=== PATIENT | female | born 1955 | race Caucasian/White ===

== ENCOUNTER 2017-05-28 19:30 | Emergency (ER) | payer BC ==
[~2017-05-28] VITALS: Ht 170.2 cm; Wt 104.3 kg
[~2017-05-28 19:30] MED LIST: DIOVAN HCT 3201 EACH PO; SIMVASTATIN20 MG PO
[2017-05-28] MEDS ORDERED: CEFTRIAXONE SOD 1 GM VIAL IM ONE (19:45)
[2017-05-28] MEDS ORDERED: ACETAMINOPHEN 325 MG TAB PO ONE (19:45)
[2017-05-28 23:05] VITALS: BP 157/76
== END 2017-05-28 20:15 | disposition home or self-care (01) ==
LOC: FSED 19:30
DX: R30.0 Dysuria (principal); R11.0 Nausea; N30.91 Cystitis, unspecified with hematuria
CPT/HCPCS: 81003; 96372; 99282; J0696

== ENCOUNTER → 2018-06-12 | Day surgery (SDC) | payer BC ==
[2018-06-10 10:17] LABS: BASOPHILS # (AUTO) 0.1 (0.0-0.1); BASOPHILS % 1.5 % (0.0-1.0); EOSINOPHILS # (AUTO) 1.3 (0.0-0.4); EOSINOPHILS % 20.9 % (0.0-6.0); HEMATOCRIT 44.1 % (34.2-44.1); HEMOGLOBIN 14.6 g/dL (12.0-16.0); LYMPHOCYTES # (AUTO) 1.2 (1.0-3.2); LYMPHOCYTES % 19.7 % (18.0-39.1); MEAN CORPUSCULAR HEMOGLOBIN 31.2 pg (28-32); MEAN CORPUSCULAR HGB CONC 33.1 g/dL (31-35); MEAN CORPUSCULAR VOLUME 94.2 fL (81-99); MONOCYTES # (AUTO) 0.6 (0.2-0.8); MONOCYTES % 10.3 % (4.4-11.3); NEUTROPHILS # (AUTO) 2.9 (2.1-6.9); NEUTROPHILS % 47.4 % (38.7-80.0); PLATELET COUNT 149 x10e3/uL (140-360); RED BLOOD COUNT 4.68 x10e6/uL (3.6-5.1); RED CELL DISTRIBUTION WIDTH 13.2 % (11.7-14.4)
[~2018-06-12] MED LIST changes: +BENICAR HCT 401 EAC1 PO; +FENTANYL CITRATE/PF 100MCG/2 ML INJ ONE; +METFORMIN HCL500 MG PO; +MIDAZOLAM HCL 2 MG/2 ML VIAL ONE; +ONDANSETRON HCL INJ 2MG/ML 2ML 2 MG/ML VIAL ONE; +PROPOFOL IV EMULSION 10 MG/ML 50 ML VIAL ONE
--- NOTE | 2018-06-13 00:42 | Operative Report ---
DATE OF PROCEDURE: 06/12/2018 SURGEON: Tunde Jacobs MD PROCEDURE: Colonoscopy and polypectomy. INDICATIONS FOR COLONOSCOPY: Surveillance colonoscopy, personal history of colon polyps. MEDICATIONS: The patient was done under MAC, please see anesthesiologist's note. PROCEDURE IN DETAIL: With the patient in the left lateral decubitus position, a flexible fiberoptic Olympus colonoscope was inserted into the rectum with ease and advanced all the way to the cecum. It was then withdrawn slowly. Mucosa overlying the cecum appeared to be within normal limits. Diverticular disease was noted to be scattered throughout the colon. Two polyps were hot biopsied from the ascending colon with 1 polypectomy site hemoclipped. One polyp was hot biopsied from the transverse colon, 4 polyps were hot biopsied from the sigmoid colon, and 6 polyps were hot biopsied from the rectum. The scope was then retroflexed into the distal rectum and small internal hemorrhoids were noted, none of which was actively bleeding. The scope was then straightened out, it was subsequently withdrawn. The patient tolerated the procedure well. IMPRESSION: 1. Pandiverticulosis. 2. Ascending colon polyps x2, one polypectomy site hemoclipped. 3. Transverse colon polyp, hot biopsied x1. 4. Sigmoid colon polyps x4, hot biopsied. 5. Rectal polyps x6, hot biopsied. 6. Internal hemorrhoids, none actively bleeding. PLAN: Followup histology. Initiate high-fiber, low-fat diet. Initiate high-fiber supplement. The patient might benefit from a followup colonoscopy in 3 years. Tunde Jacobs MD [facility] /[id number] cc: Romel Arias DO
--- OUTSIDE RECORDS SUMMARY | 2018-06-14 12:03 | XMS REPORT | Encounter Summary ---
Author Organization Unknown Address [address] [place] [address] Phone [phone] Care Team Providers Care Assessor Name Role Phone Romel Arias 3 [phone] Reason for Visit Medical Complaint Instructions 1. Acute cystitis urinalysis, dipstick urinary tract infection in women: care instructions Macrobid 100 mg capsule culture, urine 2. Biliuria 3. Urobilinogenuria 4. Glycosuria 5. Hernia of anterior abdominal wall hernia: care instructions 6. Increased frequency of urination 7. Abdominal pain abdominal pain: care instructions 8. Body mass index 30+ - obesity Discussion Note Take your antibiotics as directed. Do not stop taking them just because you feel better. You need to take the full course of antibiotics. Drink extra water and other fluids for the next day or two. This may help wash out the bacteria that are causing the infection. (If you have kidney, heart, or liver disease and have to limit fluids, talk with your doctor before you increase your fluid intake.) Avoid drinks that are carbonated or have caffeine. They can irritate the bladder. Urinate often. Try to empty your bladder each time. To relieve pain, take a hot bath or lay a heating pad set on low over your lower belly or genital area. Never go to sleep with a heating pad in place. will call with culture results and F/U with PCP Plan of Care Reminders Provider Appointments None recorded. Lab Urinalysis, Dipstick 12/27/2017 [facility] Culture, Urine 12/27/2017 [facility] Referral None recorded. Procedures None recorded. Surgeries None recorded. Imaging None recorded. Medications Name Start Date lorazepam 1 mg tablet Macrobid 100 mg capsule Take 1 capsule every 12 hours by oral route as directed for 7 days. metformin 500 mg tablet olmesartan 40 mg-hydrochlorothiazide 25 mg tablet OneTouch Delica Lancets 33 gauge OneTouch Ultra Blue Test Strip OneTouch Ultra2 kit simvastatin 20 mg tablet Medications Administered None recorded. Vitals Height Weight BMI Blood Pressure 5 ft 7 in 220 lbs 34.5 kg/m2 100/64 mm[Hg] Lab Results None recorded. Allergies Code Code System Name Reaction Severity Status Onset NKDA Problems Name Status Onset Date Source Body Mass Index 30+ - Obesity Active 06/12/2017 Hyperlipidemia Active Anxiety Active Hypertensive Disorder Active Procedures None recorded. Vaccine List Vaccine Type influenza, seasonal, injectable 02/27/2011 Social History Smoking Status Never Smoker Past Encounters 12/27/2017 Acute Cystitis; Biliuria; Urobilinogenuria; Glycosuria; Hernia of Anterior Abdominal Wall; Increased Frequency of Urination; Abdominal Pain; Body Mass Index 30+ - Obesity Kendall Carcamo PA-C: [address] [place] [address], Ph. History of Present Illness [id number] Reported By: Patient HPI: Location: abdomen. Quality: pain, pressure. Severity: same. Duration: started 2 days ago, constant. Onset/Timing: sudden. Context: no known exposure to STD, no prior history of STDs, sexually active, history of urine cultures/antibiotic treatment, wipes anterior to posterior, voids after intercourse, history of kidney stones. Modifying factors OTC medication. Associated Symptoms: no fever/chills, no flank pain, no jaundice, no blood in the urine, no pain during urination, no vaginal discharge, no blisters on genitals, no rash on genitals, no muscle aches, no headache, urgency, urinary frequency, abdominal pain Review of Systems Basic Reported By: Patient Constitutional: Constitutional: no fever Eyes: Eyes: no eye complaints Nswn-Kejj-Yhzju-Throat: Ears: no ear complaints. Nose: no nose/sinus problems. Mouth/Throat: no sore throat, no bleeding gums, no mouth complaints, no teeth problems Cardiovascular: Cardiovascular: no chest pain, no shortness of breath, no known heart murmur Respiratory: Respiratory: no cough, no wheezing, no shortness of breath Gastrointestinal: Gastrointestinal: no abdominal pain, no vomiting / diarrhea Genitourinary: Genitourinary: no urinary complaints, no discharge, urinary urgency Musculoskeletal: Musculoskeletal: no muscle aches, no muscle weakness, no arthralgias/joint pain, no back pain Skin: Skin: no abnormal / changing mole, no jaundice, no rashes Neurologic: Neurologic: no loss of consciousness, no weakness, no numbness, no seizures, no dizziness, no headaches Physical Exam Adult Female Complete Reported By: Patient Constitutional: General Appearance: healthy-appearing, well-nourished, well-developed, overweight. Level of Distress: NAD. Ambulation: ambulating normally Psychiatric: Mental Status: active and alert. Orientation: to time, to place, to person Lungs: Respiratory effort: no dyspnea. Percussion: no dullness, flatness, or hyperresonance. Auscultation: breath sounds normal Cardiovascular: Heart Auscultation: RRR, no murmurs Abdomen: Bowel Sounds: normal. Inspection and Palpation: soft, non-distended, no tenderness, no guarding, no rebound tenderness, no masses, no CVA tenderness. Liver: non-tender, no hepatomegaly. Spleen: non-tender, no splenomegaly. Hernia: ventral
--- OUTSIDE RECORDS SUMMARY | 2018-06-14 12:03 | XMS REPORT | Encounter Summary ---
Author Organization Unknown Address [address] [place] [address] Phone [phone] Reason for Visit Medical Complaint Instructions 1. Acute sinusitis sinusitis: care instructions Augmentin 875 mg-125 mg tablet 2. Essential hypertension Discussion Note: None recorded. Plan of Care Patient Instructions continue with nasal steroids. d/c decongestant. follow up pcp and recheck BP Reminders Provider Appointments None recorded. Lab None recorded. Referral None recorded. Procedures None recorded. Surgeries None recorded. Imaging None recorded. Medications Name Start Date Augmentin 875 mg-125 mg tablet Take 1 tablet every 12 hours by oral route with meals for 10 days. lorazepam 1 mg tablet simvastatin 20 mg tablet valsartan 320 mg-hydrochlorothiazide 25 mg tablet Medications Administered None recorded. Vitals Height Weight BMI Blood Pressure 5 ft 7 in 220 lbs 34.5 kg/m2 158/94 mm[Hg] Lab Results None recorded. Allergies Code Code System Name Reaction Severity Status Onset NKDA Problems Name Status Onset Date Source Acute Suppurative Otitis Media without Spontaneous Rupture of Ear Drum Active Encounter Acute Sinusitis Active Encounter Acute Upper Respiratory Infection Active Encounter Urinary Tract Infectious Disease Active Encounter Abnormal Blood Pressure Active Encounter Procedures None recorded. Vaccine List Vaccine Type influenza, seasonal, injectable 02/27/2011 Social History Smoking Status Never Smoker Past Encounters 04/28/2017 Acute Sinusitis; Essential Hypertension Joshua South SUBSTATION MANAGER-C: [address] [place] [address], Ph. History of Present Illness [id number] Reported By: Patient HPI: Location: head/sinuses, chest. Quality: productive cough, nasal/sinus congestion, dry cough. Duration: 14days. Severity: moderate. Onset/Timing: gradual. Context: no foreign travel, non-smoker, sick contact. Associated Symptoms: no shortness of breath, no wheezing, no change in number of pillows needed to sleep at night, no sweats, no significant weight gain, no significant weight loss, no morning cough, no sore throat, no vomiting, no diarrhea, no rash, no nausea, no fever, no muscle aches, no headache, green sputum Review of Systems:ROS as noted in the HPI Review of Systems Basic Reported By: Patient Physical Exam Adult Basic, Adult Female Complete Reported By: Patient Constitutional: General Appearance: obese. Level of Distress: NAD. Ambulation: ambulating normally Psychiatric: Mental Status: active and alert Eyes: Lids and Conjunctivae: non-injected, no discharge Olg-Azrp-Uqtay-Throat: Ears: no lesions on external ear, no outer ear tenderness, EACs clear, TMs clear. Hearing: no hearing loss. Nose: no lesions on external nose, sinus tenderness, nasal discharge--purulent; congestion. Lips, Teeth, and Gums: no mouth or lip ulcers. Oropharynx: moist mucous membranes, no erythema, no exudates, tonsils not enlarged Neck: Neck: trachea midline. Lymph Nodes: no cervical LAD Lungs: Respiratory effort: no dyspnea, no tachypnea, no use of accessory muscles, no intercostal retractions. Auscultation: breath sounds normal Cardiovascular: Heart Auscultation: RRR, no murmurs
--- OUTSIDE RECORDS SUMMARY | 2018-06-14 12:03 | XMS REPORT | Continuity of Care Document ---
Author Author [facility] Interface Address Unknown Phone Unavailable Problems Problem Status Onset Date Classification Date Reported Comments Source Hernia of anterior abdominal wall 12/27/2017 Diagnosis 12/27/2017 [facility] Acute cystitis 12/27/2017 Diagnosis 12/27/2017 [facility] Glycosuria 12/27/2017 Diagnosis 12/27/2017 [facility] Biliuria 12/27/2017 Diagnosis 12/27/2017 [facility] Urobilinogenuria 12/27/2017 Diagnosis 12/27/2017 [facility] Abdominal pain 12/27/2017 Diagnosis 12/27/2017 [facility] Increased frequency of urination 12/27/2017 Diagnosis 12/27/2017 [facility] Body mass index 30+ - obesity 12/27/2017 Diagnosis 12/27/2017 [facility] Hypertensive disorder 06/12/2017 Diagnosis 06/12/2017 [facility] Urinary tract infectious disease 06/12/2017 Diagnosis 06/12/2017 [facility] Body Mass Index 30+ - Obesity 06/12/2017 Problem 12/27/2017 [facility] Acute sinusitis 04/28/2017 Diagnosis 04/28/2017 [facility] Essential hypertension 04/28/2017 Diagnosis 04/28/2017 [facility] Acute Suppurative Otitis Media without Spontaneous Rupture of Ear Drum Problem 04/28/2017 [facility] Acute Sinusitis Problem 04/28/2017 [facility] Acute Upper Respiratory Infection Problem 04/28/2017 [facility] Urinary Tract Infectious Disease Problem 06/12/2017 [facility] Abnormal Blood Pressure Problem 04/28/2017 [facility] Hyperlipidemia Problem 12/27/2017 [facility] Anxiety Problem 12/27/2017 [facility] Hypertensive Disorder Problem 12/27/2017 [facility] Medications Medication Details Route Status Patient Instructions Ordering Provider Order Date Source Amoxicillin 875 MG / Clavulanate 125 MG Oral Tablet [Augmentin] Augmentin 875 mg-125 mg tablet Take 1 tablet every 12 hours by oral route with meals for 10 days. Active [facility] Lorazepam 1 MG Oral Tablet lorazepam 1 mg tablet Active [facility] Simvastatin 20 MG Oral Tablet simvastatin 20 mg tablet Active [facility] Hydrochlorothiazide 25 MG / valsartan 320 MG Oral Tablet valsartan 320 mg-hydrochlorothiazide 25 mg tablet Active [facility] NITROFURANTOIN, MACROCRYSTALS 25 MG / Nitrofurantoin, Monohydrate 75 MG Oral Capsule [Macrobid] Macrobid 100 mg capsule Take 1 capsule every 12 hours by oral route as directed for 7 days. Active [facility] Metformin hydrochloride 500 MG Oral Tablet metformin 500 mg tablet Active [facility] Hydrochlorothiazide 25 MG / Olmesartan medoxomil 40 MG Oral Tablet olmesartan 40 mg-hydrochlorothiazide 25 mg tablet Active [facility] OneTouch Delica Lancets 33 gauge OneTouch Delica Lancets 33 gauge Active [facility] OneTouch Ultra Blue Test Strip OneTouch Ultra Blue Test Strip Active [facility] OneTouch Ultra2 kit OneTouch Ultra2 kit Active [facility] Phenazopyridine hydrochloride 200 MG Oral Tablet phenazopyridine 200 mg tablet Take 1 tablet 3 times a day by oral route as needed for 2 days. Active [facility] Allergies, Adverse Reactions, Alerts Substance Category Reaction Severity Reaction type Status Date Reported Comments Source Immunizations Immunization Date Given Site Status Last Updated Comments Source influenza, seasonal, injectable 02/27/2011 completed [facility] Results Order Name Results Value Reference Range Date Interpretation Comments Source Urinalysis macro (dipstick) panel - Urine COLOR : Yellow 06/12/2017 [facility] Urinalysis macro (dipstick) panel - Urine CLARITY : Clear 06/12/2017 [facility] Urinalysis macro (dipstick) panel - Urine LEUKOCYTES : Large 06/12/2017 [facility] Urinalysis macro (dipstick) panel - Urine NITRITES : Negative 06/12/2017 [facility] Urinalysis macro (dipstick) panel - Urine UROBILINOGEN : Normal 06/12/2017 [facility] Urinalysis macro (dipstick) panel - Urine PROTEIN : Trace 06/12/2017 [facility] Urinalysis macro (dipstick) panel - Urine pH : 5.0 06/12/2017 [facility] Urinalysis macro (dipstick) panel - Urine BLOOD : Small 06/12/2017 [facility] Urinalysis macro (dipstick) panel - Urine SPECIFIC GRAVITY : 1.000 06/12/2017 [facility] Urinalysis macro (dipstick) panel - Urine KETONES : Negative 06/12/2017 [facility] Urinalysis macro (dipstick) panel - Urine BILIRUBIN : Negative 06/12/2017 [facility] Urinalysis macro (dipstick) panel - Urine GLUCOSE Negative 06/12/2017 [facility] Vital Signs Vital Sign Value Date Comments Source Diastolic (mm Hg) 64 12/27/2017 [facility] Height 67 12/27/2017 [facility] Systolic (mm Hg) 100 12/27/2017 [facility] Weight 220 12/27/2017 [facility] Diastolic (mm Hg) 80 06/12/2017 [facility] Height 67 06/12/2017 [facility] Systolic (mm Hg) 120 06/12/2017 [facility] Weight 230 06/12/2017 [facility] Diastolic (mm Hg) 94 04/28/2017 [facility] Height 67 04/28/2017 [facility] Systolic (mm Hg) 158 04/28/2017 [facility] Weight 220 04/28/2017 [facility] Encounters Location Location Details Encounter Type Encounter Number Reason For Visit Attending Provider ADM Date DC Date Status Source [place] [facility] - [id number] SUMAN Colbert-C: [address] [place] [address], Ph. [id number] Joshua South 04/28/2017 [facility] [place] - [facility] - [id number] Collier-C: [address] [place] [address], Ph. [id number] Marietta Huang 06/12/2017 [facility] [place] - [facility] - [id number] Kendall Carcamo PA-C: [address] [place] [address], Ph. [id number] Kendall Carcamo 12/27/2017 [facility] Procedures Procedure Code Date Perfomer Comments Source
--- OUTSIDE RECORDS SUMMARY | 2018-06-14 12:03 | XMS REPORT | Encounter Summary ---
Author Organization Unknown Address [address] [place] [address] Phone [phone] Care Team Providers Care Gun Perforator Name Role Phone Romel Arias 3 [phone] Reason for Visit Medical Complaint Instructions 1. Urinary tract infectious disease urinary tract infection in women: care instructions phenazopyridine 200 mg tablet Macrobid 100 mg capsule urinalysis, dipstick culture, urine 2. Hyperlipidemia high cholesterol: care instructions 3. Hypertensive disorder elevated blood pressure: care instructions 4. Body mass index 30+ - obesity Discussion Note Pt is in NAD; Verbalizes understanding of all instructions with no questions at this time. Plan of Care Patient Instructions Recommend proper hydration and frequent urination. Avoid douching, Recommend urinating after sexual intercourse. Recommend wipe front to back after urinating. Avoid using tubs. Take medications as prescribed. Follow up with your PCP or urologist within 2-3 days if symptoms worsen as discussed. Recommend monitor BP at home and document, bring BP log to PCP for review. Recommend follow a low sodium/fat/ carb diet and exercise 30-45 mins/d 3-4 days a week. Reminders Provider Appointments None recorded. Lab Urinalysis, Dipstick 06/12/2017 [facility] Culture, Urine 06/12/2017 [facility] Referral None recorded. Procedures None recorded. Surgeries None recorded. Imaging None recorded. Medications Name Start Date lorazepam 1 mg tablet Macrobid 100 mg capsule Take 1 capsule every 12 hours by oral route as directed for 7 days. phenazopyridine 200 mg tablet Take 1 tablet 3 times a day by oral route as needed for 2 days. simvastatin 20 mg tablet valsartan 320 mg-hydrochlorothiazide 25 mg tablet Medications Administered None recorded. Vitals Height Weight BMI Blood Pressure 5 ft 7 in 230 lbs 36 kg/m2 120/80 mm[Hg] Lab Results Date Name Specimen Result Interpretation Description Value Range Status Address Urinalysis, Dipstick Color : Yellow [facility]: [facility] Clarity : Clear [facility]: [facility] Leukocytes : Large [facility]: [facility] Nitrites : Negative [facility]: [address] [facility] Urobilinogen : Normal [facility]: [facility] Protein : Trace [facility]: [facility] Ph : 5.0 [facility]: [facility] Blood : Small [facility]: [address] [place] [address] Specific [place] : 1.000 [facility]: [facility] Ketones : Negative [facility]: [facility] Bilirubin : Negative [facility]: [facility] Glucose Negative [facility]: [facility] Allergies Code Code System Name Reaction Severity Status Onset NKDA Problems Name Status Onset Date Source Body Mass Index 30+ - Obesity Active 06/12/2017 Hyperlipidemia Active Anxiety Active Hypertensive Disorder Active Urinary Tract Infectious Disease Active Encounter Procedures None recorded. Vaccine List Vaccine Type influenza, seasonal, injectable 02/27/2011 Social History Smoking Status Never Smoker Past Encounters 06/12/2017 Urinary Tract Infectious Disease; Hyperlipidemia; Hypertensive Disorder; Body Mass Index 30+ - Obesity Marietta Huang, PROJECT ADMINISTRATIVE ASSISTANT-C: [address] [place] [address], Ph. History of Present Illness [id number] Reported By: Patient HPI: Location: urethra. Quality: pain, pressure. Severity: worsening, moderate. Duration: constant. Onset/Timing: worse, gradual. Context: no known exposure to STD, no prior history of STDs, sexually active, heterosexual, vaginal intercourse, history of urine cultures/antibiotic treatment, wipes anterior to posterior, voids after intercourse; Pt reports she was treated for UTI on 05-28-17 with cipro 500 mg PO BID X 10 days with no relief. Pt has h/o recurrent UTIs and has followed with urology in the past. Modifying factors nothing makes it worse. Associated Symptoms: no fever/chills, no flank pain, no jaundice, no blood in the urine, no vaginal discharge, no blisters on genitals, no rash on genitals, no muscle aches, no headache, pain during urination, urgency, urinary frequency; hesitancy Review of Systems:ROS as noted in the HPI Review of Systems Basic Reported By: Patient Physical Exam Adult Basic, Adult Female Complete Reported By: Patient Constitutional: General Appearance: obese. Level of Distress: NAD. Ambulation: ambulating normally Psychiatric: Mental Status: active and alert. Orientation: to time, to place, to person Eyes: Lids and Conjunctivae: non-injected, no pallor; no periorbital edema Neck: Neck: supple. Lymph Nodes: no cervical LAD Lungs: Respiratory effort: no dyspnea, no tachypnea, no use of accessory muscles, no intercostal retractions. Auscultation: breath sounds normal Cardiovascular: Heart Auscultation: RRR, no murmurs Musculoskeletal:: Extremities: no edema Neurologic: Gait and Station: normal gait Abdomen: Bowel Sounds: normal. Inspection and Palpation: soft, non-distended, no tenderness, no guarding, no rebound tenderness, no masses, no CVA tenderness. Hernia: none palpable
== END | disposition home or self-care (01) ==
LOC: OR 14:24
PROVIDERS: ATTEND Internal Medicine Gastroenterology
DX: K59.09 Other constipation (principal); K63.5 Polyp of colon; K62.1 Rectal polyp; K57.30 Diverticulosis of large intestine without perforation or abscess without bleeding; K64.8 Other hemorrhoids; E11.9 Type 2 diabetes mellitus without complications; I10 Essential (primary) hypertension; E78.00 Pure hypercholesterolemia, unspecified; Z01.810 Encounter for preprocedural cardiovascular examination; Z01.812 Encounter for preprocedural laboratory examination; Z79.84 Long term (current) use of oral hypoglycemic drugs; Z68.33 Body mass index [BMI] 33.0-33.9, adult
CPT/HCPCS: 36415 ×2; 45384; 82948; 85025; 93005; J2250; J2405

== ENCOUNTER 2018-07-20 22:01 | Emergency (ER) | payer BC ==
[~2018-07-20] VITALS: Ht 170.2 cm; Wt 104.3 kg
[~2018-07-20 22:01] MED LIST changes: +DICYCLOMINE HCL10 MG PO; -FENTANYL CITRATE/PF 100MCG/2 ML INJ ONE; -MIDAZOLAM HCL 2 MG/2 ML VIAL ONE; -ONDANSETRON HCL INJ 2MG/ML 2ML 2 MG/ML VIAL ONE; -PROPOFOL IV EMULSION 10 MG/ML 50 ML VIAL ONE
--- OUTSIDE RECORDS SUMMARY | 2018-07-20 22:03 | XMS REPORT ---
Author Author 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 Allergies, Adverse Reactions, Alerts Allergy Name Allergy Type Status Severity Reaction(s) Onset Date Inactive Date Treating Clinician Comments No Known Allergies DA Active U 2018-07-09 00:00:00 NKFA DA Active U 2008-11-20 00:00:00 No Known Intolerances DA Active U 2008-11-16 00:00:00 Medications This patient has no known medications. Results Test Description Test Time Test Comments Text Results Atomic Results Result Comments URINALYSIS COMPLETE 2018-07-09 15:18:00 UA COLOR (test code=COLU) YELLOW YELLOW UA APPEARANCE (test code=APPU) Cloudy CLEAR UA GLUCOSE DIPSTICK (test code=DGLUU) NEGATIVE mg/dL NEGATIVE UA BILIRUBIN DIPSTICK (test code=BILU) NEGATIVE NEGATIVE UA KETONE DIPSTICK (test code=KETU) TRACE mg/dL NEGATIVE UA SPECIFIC GRAVITY (test code=SGU) 1.020 1.001-1.035 UA BLOOD DIPSTICK (test code=JAVIER) NEGATIVE NEGATIVE UA PH DIPSTICK (test code=DIANNA) 6.0 5.0-8.0 UA PROTEIN DIPSTICK (test code=PROU) NEGATIVE mg/dL Neg-15 UA UROBILINIOGEN DIPSTICK (test code=URO) 0.2 mg/dL 0.0-0.2 UA NITRITE DIPSTICK (test code=LUPILLO) POSITIVE NEGATIVE UA LEUKOCYTE ESTERASE DIPSTICK (test code=LEUU) 1+ uL NEGATIVE UA MICROSCOPIC NEEDED? (test code=UAMICRO) YES UA WBC (test code=WBCU) 10-20 per HPF 0-5 IN SOME URINARY TRACT INFECTIONS THERE MAY NOT BE ENOUGHWBCs IN THE URINE TO TRIGGER AN AUTOMATIC (REFLEX) URINECULTURE. A SEPERATE ORDER FOR URINE CULTURE IS RECOMMENDEDIF THERE IS STRONG SUPPORT FOR A URINARY TRACT INFECTIONCLINICALLY. UA RBC (test code=RBCU) 0-2 per HPF 0-5 UA EPITHELIAL CELLS (test code=EPIU) Rare (0-1/hpf) per HPF Few UA BACTERIA (test code=BACU) MANY per HPF NONE UA HYALINE CAST (test code=HYALU) 0-2 per LPF 0-2 UA MUCUS (test code=MUCU) MODERATE per LPF NONE-FEW Urine Source? Clean CatchURINALYSIS [id number] 15:16:00* Test Item Value Reference Range Comments UA COLOR (test code=COLU) YELLOW YELLOW UA APPEARANCE (test code=APPU) Cloudy CLEAR UA GLUCOSE DIPSTICK (test code=DGLUU) NEGATIVE mg/dL NEGATIVE UA BILIRUBIN DIPSTICK (test code=BILU) NEGATIVE NEGATIVE UA KETONE DIPSTICK (test code=KETU) TRACE mg/dL NEGATIVE UA SPECIFIC GRAVITY (test code=SGU) 1.020 1.001-1.035 UA BLOOD DIPSTICK (test code=JAVIER) NEGATIVE NEGATIVE UA PH DIPSTICK (test code=DIANNA) 6.0 5.0-8.0 UA PROTEIN DIPSTICK (test code=PROU) NEGATIVE mg/dL Neg-15 UA UROBILINIOGEN DIPSTICK (test code=URO) 0.2 mg/dL 0.0-0.2 UA NITRITE DIPSTICK (test code=LUPILLO) POSITIVE NEGATIVE UA LEUKOCYTE ESTERASE DIPSTICK (test code=LEUU) 1+ uL NEGATIVE UA MICROSCOPIC NEEDED? (test code=UAMICRO) UA WBC (test code=WBCU) per HPF 0-5 UA RBC (test code=RBCU) per HPF 0-5 UA EPITHELIAL CELLS (test code=EPIU) per HPF Few UA BACTERIA (test code=BACU) per HPF NONE Urine Source? Clean CatchBASIC METABOLIC [id number] 13:45:00* Test Item Value Reference Range Comments SODIUM (test code=NA) 142 mmol/L 128-145 POTASSIUM (test code=K) 3.3 mmol/L 3.5-5.1 CHLORIDE (test code=CL) 107.0 mmol/L 98-107 CARBON DIOXIDE (test code=CO2) 28.1 mmol/L 22-29 ANION GAP (test code=GAP) 10 mmol/L 10-20 GLUCOSE (test code=GLU) 115 mg/dL 70-110 BLOOD UREA NITROGEN (test code=BUN) 17 mg/dL 7-22 GLOMERULAR FILTRATION RATE (test code=GFR) 58 mL/min >=60 Estimated GFR by using Modified MDRD formula.Chronic kidney disease is defined as either kidney damageor GFR <60 mL/min/1.73 m2 for >3 months. CREATININE (test code=CREAT) 0.97 mg/dL 0.55-1.3 BUN/CREATININE RATIO (test code=BUN/CREA) 17.5 10-20 CALCIUM (test code=CA) 9.4 mg/dL 8.0-10.5 [id number] 13:45:00* Test Item Value Reference Range Comments TROPONIN-I (test code=TROPI) <0.015 ng/mL 0.00-0.056 BASIC METABOLIC [id number] 13:38:00* Test Item Value Reference Range Comments SODIUM (test code=NA) 142 mmol/L 128-145 POTASSIUM (test code=K) 3.3 mmol/L 3.5-5.1 CHLORIDE (test code=CL) 107.0 mmol/L 98-107 CARBON DIOXIDE (test code=CO2) 28.1 mmol/L 22-29 ANION GAP (test code=GAP) 10 mmol/L 10-20 GLUCOSE (test code=GLU) 115 mg/dL 70-110 BLOOD UREA NITROGEN (test code=BUN) 17 mg/dL 7-22 GLOMERULAR FILTRATION RATE (test code=GFR) 58 mL/min >=60 Estimated GFR by using Modified MDRD formula.Chronic kidney disease is defined as either kidney damageor GFR <60 mL/min/1.73 m2 for >3 months. CREATININE (test code=CREAT) 0.97 mg/dL 0.55-1.3 BUN/CREATININE RATIO (test code=BUN/CREA) 17.5 10-20 CALCIUM (test code=CA) 9.4 mg/dL 8.0-10.5 [id number] 13:38:00* Test Item Value Reference Range Comments TROPONIN-I (test code=TROPI) ng/mL 0-0.045 CBC W/O [id number] 13:30:00* Test Item Value Reference Range Comments WHITE BLOOD CELL (test code=WBC) 8.6 K/mm3 4.5-12.5 RED BLOOD CELL (test code=RBC) 4.00 mill/mm3 3.7-5.2 HEMOGLOBIN (test code=HGB) 12.7 gram/dL 11.5-15.5 HEMATOCRIT (test code=HCT) 38.6 % 36.0-46.0 MEAN CELL VOLUME (test code=MCV) 96.5 fL 80-98 MEAN CELL HGB (test code=MCH) 31.8 picogram 27.0-33.0 MEAN CELL HGB CONCETRATION (test code=MCHC) 32.9 gram/dL 33.0-36.0 RED CELL DISTRIBUTION WIDTH (test code=RDW) 13.4 % 11.6-16.2 RED CELL DISTRIBUTION WIDTH SD (test code=RDW-SD) 47.8 fL 37.0-51.0 PLATELET COUNT (test code=PLT) 154 K/mm3 150-450 MEAN PLATELET VOLUME (test code=MPV) 10.5 fL 6.7-11.0 - XR CHEST 1 [id number] 12:52:00 FAX: Taco Vincent [phone] [place]: [place] St: PRE Name: MARIBELL MONZON [facility] FSED : [birth year] Age/S: 63/F [address] [facility] [address] Unit #: [id number] Loc: MEÑO [address] Phys: Taco Vincent MD [place], [place] [address] Acct: [id number] Dis Date: Status: PRE ER PHONE #: Exam Date: 07/09/2018 1249 FAX #: Reason: sob EXAMS: CPT CODE: [id number] XR CHEST 1 V 08665 HISTORY: Shortness of breath. COMPARISON: None available. No acute infiltrates, effusion or congestion is noted. Suboptimal inspiration. Dependent changes. Cardiomegaly. IMPRESSION: No acute infiltrates, effusion or congestion. at 1060 Reported and signed b y: Randal Mabry M.D. CC: Taco Vincent MD Technologist: Mark Cox Trnscrd Date/Time/By: 07/09/2018 (1867) : By: [email or web address] Orig Print D/T: S: 07/09/2018 (4741) PAGE 1 Signed Report
[2018-07-21] MEDS ORDERED: DONNATAL/LIDOCAINE/MAALOX 30 ML SUSP PO ONE ×2 (00:30→01:15)
[2018-07-21 00:47] LABS: BASOPHILS # (AUTO) 0.1 (0.0-0.1); BASOPHILS % 0.6 % (0.0-1.0); EOSINOPHILS # (AUTO) 0.1 (0.0-0.4); EOSINOPHILS % 0.6 % (0.0-6.0); HEMATOCRIT 29.8 % (34.2-44.1); HEMOGLOBIN 9.6 g/dL (12.0-16.0); LYMPHOCYTES # (AUTO) 0.7 (1.0-3.2); LYMPHOCYTES % 8.3 % (18.0-39.1); MEAN CORPUSCULAR HEMOGLOBIN 31.9 pg (28-32); MEAN CORPUSCULAR HGB CONC 32.2 g/dL (31-35); MONOCYTES # (AUTO) 0.3 (0.2-0.8); NEUTROPHILS # (AUTO) 7.3 (2.1-6.9); NEUTROPHILS % 86.7 % (38.7-80.0); PLATELET COUNT 190 x10e3/uL (140-360); RED BLOOD COUNT 3.01 x10e6/uL (3.6-5.1); RED CELL DISTRIBUTION WIDTH 14.6 % (11.7-14.4)
[2018-07-21 01:00] LABS: BACTERIA,URINE MODERATE /HPF; CLARITY,URINE CLEAR (CLEAR); COLOR,URINE YELLOW (YELLOW); EPITHELIAL CELLS,URINE FEW /LPF; KETONES,URINE TRACE (NEGATIVE); LEUKOCYTE ESTERASE ,URINE NEGATIVE (NEGATIVE); MUCUS,URINE MANY (RARE); NITRITE,URINE NEGATIVE (NEGATIVE); PROTEIN,URINE DIPSTICK NEGATIVE (NEGATIVE); URINE UROBILINOGEN 0.2 mg/dL (0.2 - 1)
[2018-07-21 01:01] LABS: BILIRUBIN,URINE NEGATIVE (NEGATIVE)
[2018-07-21 01:15] LABS: ALANINE AMINOTRANSFERASE 34 IU/L (0-55); ALBUMIN 3.2 g/dL (3.5-5.0); ALBUMIN/GLOBULIN RATIO 0.9 (0.8-2.0); ALKALINE PHOSPHATASE 88 IU/L (40-150); ANION GAP 11.2 mmol/L (8-16); BLOOD UREA NITROGEN 18 mg/dL (7-26); BUN/CREATININE RATIO 25 (6-25); CALCIUM 9.2 mg/dL (8.4-10.2); CARBON DIOXIDE 21 mmol/L (22-29); CHLORIDE 107 mmol/L (98-107); CREATININE, SERUM 0.72 mg/dL (0.57-1.11); EST GLOMERULAR FILTRATION RATE > 60 ML/MIN (60-); GLUCOSE 151 mg/dL (74-118); POTASSIUM 4.2 mmol/L (3.5-5.1); SODIUM 135 mmol/L (136-145)
[2018-07-21] MEDS ORDERED: LIDOCAINE VISC 2% SOLN 15 ML UDC PO ONE (01:30)
[2018-07-21] MEDS ORDERED: BELLADONNA ALK/PHENOBARBITAL 5 ML UDC PO ONE (01:30)
[2018-07-21] MEDS ORDERED: MAGNESIUM/ALUMINUM/SIMETHICONE 30 ML UDC PO ONE (01:30)
[2018-07-21] MEDS ORDERED: BACTRIM DS TAB1 EACH PO (03:22)
[2018-07-21 03:34] VITALS: BP 129/68
[2018-07-21] MEDS ORDERED: BENICAR HCT 401 EAC1 PO (12:04)
[2018-07-21] MEDS ORDERED: PANTOPRAZOLE SO20 MG PO (12:04)
--- NOTE | 2018-07-21 16:41 | Operative Report ---
DATE OF PROCEDURE: 07/21/2018 SURGEON: Tunde Jacobs MD PROCEDURE: Esophagogastroduodenoscopy with banding of esophageal varices. INDICATIONS FOR PROCEDURE: History of hematemesis. MEDICATIONS: The patient was done under MAC, please see anesthesiologist's note. PROCEDURE IN DETAIL: With the patient in left lateral decubitus position, flexible fiberoptic Olympus gastroscope was introduced into the esophagus under direct visualization without any difficulty. Grade 3 to 4 esophageal varices were noted and one varix had an overlying fibrin clot that bled transiently after an attempt to wash it off. The scope was then advanced with ease into the stomach and mucosa overlying the antrum and the body revealed some diffuse erythema. There was what appears to be a gastric band that eroded partially through the wall of the stomach and was noted as the scope was advanced into the stomach. The pylorus was of normal contour and shape, it was intubated with ease and the scope was advanced all the way to the second portion of the duodenum. The scope was then withdrawn slowly, mucosa overlying the proximal second portion and duodenal bulb appeared to be within normal limits. The scope was then withdrawn back into the stomach and retroflexed and the previously described gastric band was also noted in the retroflexed position. No obvious fundal varices were noted nor cardiac varices. The scope was then straightened out, it was subsequently withdrawn. The scope was then fitted for banding, it was reintroduced into the esophagus. Seven bands were applied to 3 columns of varices. The scope was subsequently withdrawn. The patient tolerated the procedure well. IMPRESSION: 1. Esophageal varices, grade 3 to 4 with stigmata of recent hemorrhage, seven bands applied to 3 columns of varices. 2. Gastric band appears to have partially eroded through the gastric wall. 3. Gastritis. PLAN: Continue Protonix 40 mg one p.o. q.a.m. a.c., initiate Inderal 10 mg one p.o. b.i.d. Check acute hepatitis panel, CBCs, CMP, PT, INR, and ultrasound of the liver. The patient will also need a CT scan of the abdomen. Tunde Jacobs MD [facility] [place]/MODL /[id number] cc: Romel Arias DO
== END 2018-07-21 03:36 | disposition home or self-care (01) ==
LOC: ER 22:01
DX: R10.13 Epigastric pain (principal); R11.0 Nausea; K29.00 Acute gastritis without bleeding; N30.91 Cystitis, unspecified with hematuria; I10 Essential (primary) hypertension
CPT/HCPCS: 36415; 80053; 81001; 85025; 99284

== ENCOUNTER → 2018-07-21 | Day surgery (SDC) | payer BC ==
[~2018-07-21] MED LIST changes: +BACTRIM DS TAB1 EACH PO; +LIDOCAINE HCL 2% LOCAL INJ 5 ML SDV VIAL INJ ONE; +MIDAZOLAM HCL 2 MG/2 ML VIAL ONE; +ONDANSETRON HCL INJ 2MG/ML 2ML 2 MG/ML VIAL ONE; +PANTOPRAZOLE SO20 MG PO; +PROPOFOL IV EMULSION 10 MG/ML 20 ML VIAL ONE
[2018-07-21 16:31] VITALS: BP 137/63
[2018-07-21 18:13] LABS: BASOPHILS # (AUTO) 0.1 (0.0-0.1); BASOPHILS % 0.7 % (0.0-1.0); EOSINOPHILS # (AUTO) 0.4 (0.0-0.4); EOSINOPHILS % 4.3 % (0.0-6.0); HEMATOCRIT 28.5 % (34.2-44.1); HEMOGLOBIN 8.9 g/dL (12.0-16.0); LYMPHOCYTES # (AUTO) 2.2 (1.0-3.2); LYMPHOCYTES % 21.2 % (18.0-39.1); MEAN CORPUSCULAR HEMOGLOBIN 31.9 pg (28-32); MEAN CORPUSCULAR HGB CONC 31.2 g/dL (31-35); MEAN CORPUSCULAR VOLUME 102.2 fL (81-99); MONOCYTES % 9.8 % (4.4-11.3); NEUTROPHILS # (AUTO) 6.5 (2.1-6.9); NEUTROPHILS % 63.4 % (38.7-80.0); PLATELET COUNT 174 x10e3/uL (140-360); RED BLOOD COUNT 2.79 x10e6/uL (3.6-5.1); RED CELL DISTRIBUTION WIDTH 15.2 % (11.7-14.4)
[2018-07-21 18:31] LABS: ALANINE AMINOTRANSFERASE 30 IU/L (0-55); ALBUMIN 3.1 g/dL (3.5-5.0); ALKALINE PHOSPHATASE 53 IU/L (40-150); ANION GAP 9.7 mmol/L (8-16); BLOOD UREA NITROGEN 18 mg/dL (7-26); BUN/CREATININE RATIO 26 (6-25); CALCIUM 8.8 mg/dL (8.4-10.2); CARBON DIOXIDE 22 mmol/L (22-29); CHLORIDE 109 mmol/L (98-107); CREATININE, SERUM 0.68 mg/dL (0.57-1.11); EST GLOMERULAR FILTRATION RATE > 60 ML/MIN (60-); GLUCOSE 91 mg/dL (74-118); POTASSIUM 3.7 mmol/L (3.5-5.1); SODIUM 137 mmol/L (136-145)
[2018-07-21 18:35] LABS: INR 1.03
--- NOTE | 2018-09-01 04:51 | Operative Report ---
DATE OF PROCEDURE: 07/21/2018 SURGEON: Tunde Jacobs MD PROCEDURE: EGD with banding of esophageal varices. INDICATIONS FOR EGD: History of hematemesis. MEDICATIONS: The patient was done under MAC, please see anesthesiologist's note. PROCEDURE IN DETAIL: With the patient in left lateral decubitus position, a flexible fiberoptic Olympus gastroscope was introduced into the esophagus under direct visualization without any difficulty. Grade 3 to 4 esophageal varices were noted without active bleeding; however, there was a fibrin clot on one varix that bled transiently after being washed off. The scope was then advanced into the stomach and the mucosa overlying the antrum and the body revealed some diffuse erythema and changes compatible with portal hypertensive gastropathy. The pylorus was intubated with ease and the scope was advanced all the way to the second portion of the duodenum. The scope was then withdrawn slowly and mucosa overlying the proximal second portion and duodenal bulb appeared to be within normal limits. The scope was then withdrawn back into the stomach and retroflexed and there appears to be a gastric band, apparently that the patient has had placed in the past. It appears to have eroded partially through the gastric wall. The scope was then straightened out, it was subsequently withdrawn. It was then fitted for banding and was reintroduced into the esophagus and 7 bands were applied to 3 columns of varices. There was good hemostasis. The scope was subsequently withdrawn. The patient tolerated procedure well. IMPRESSION: 1. Esophageal varices, grade 3 to 4 with stigmata of recent hemorrhage, 7 bands applied to 3 columns of varices. 2. Gastric band appears to have partially eroded through the wall of the stomach. 3. Portal hypertensive gastropathy. PLAN: Continue Protonix 40 mg 1 p.o. q.a.m. a.c., initiate Inderal 10 mg 1 p.o. b.i.d. Check acute hepatitis panel. Check CBC, CMP, PT, INR. We will order ultrasound of patient's liver and obtain alpha-fetoprotein. Tunde Jacbos MD [facility] [place]/[facility] /[id number] cc: Romel Arias DO
== END | disposition home or self-care (01) ==
LOC: OR 11:37
PROVIDERS: ATTEND Internal Medicine Gastroenterology
DX: K92.0 Hematemesis (principal); I85.00 Esophageal varices without bleeding; K76.6 Portal hypertension; K31.89 Other diseases of stomach and duodenum; Z98.84 Bariatric surgery status; K63.5 Polyp of colon; K62.1 Rectal polyp; K64.8 Other hemorrhoids; E11.9 Type 2 diabetes mellitus without complications; D64.9 Anemia, unspecified; E78.6 Lipoprotein deficiency; I10 Essential (primary) hypertension; Z79.84 Long term (current) use of oral hypoglycemic drugs; Z68.32 Body mass index [BMI] 32.0-32.9, adult
CPT/HCPCS: 36415; 43244; 80053; 82948; 85025; 85610; J2001; J2250; J2405; J2704; 43255

== ENCOUNTER → 2018-12-02 | Day surgery (SDC) | payer BC, MEDICARE ==
[2018-11-26 11:40] LABS: INR 1.6; PROTHROMBIN TIME 19.7 seconds (11.9-14.5)
[2018-11-26 11:41] LABS: PARTIAL THROMBOPLASTIN TIME 35.4 seconds (23.8-35.5)
[~2018-12-02] MED LIST changes: +CONSTULOSE10 GM/15 M PO; +FENTANYL CITRATE/PF 100MCG/2 ML INJ ONE; -LIDOCAINE HCL 2% LOCAL INJ 5 ML SDV VIAL INJ ONE; +LORAZEPAM1 MG PO; -PROPOFOL IV EMULSION 10 MG/ML 20 ML VIAL ONE; +PROPOFOL IV EMULSION 10 MG/ML 50 ML VIAL ONE; +PROPRANOLOL HCL10 MG PO; +SPIRONOLACTONE25 MG PO; +ULTRAM50 MG PO; +XARELTO20 MG PO
--- OUTSIDE RECORDS SUMMARY | 2018-12-02 12:15 | XMS REPORT | Continuity of Care Document ---
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 [facility] Abdominal pain 12/27/2017 Diagnosis 12/27/2017 [facility] Increased frequency of urination 12/27/2017 Diagnosis 12/27/2017 [facility] Body mass index 30+ - obesity 06/12/2017 Problem 12/27/2017 [facility] Essential hypertension 04/28/2017 Diagnosis 04/28/2017 [facility] Acute suppurative otitis media without spontaneous rupture of ear drum Problem 04/28/2017 [facility] Acute sinusitis Problem 04/28/2017 [facility] Acute upper respiratory infection Problem 04/28/2017 [facility] Urinary tract infectious disease Problem 06/12/2017 [facility] Abnormal blood pressure Problem 04/28/2017 [facility] Hyperlipidemia Problem 12/27/2017 [facility] Anxiety Problem 12/27/2017 [facility] Hypertensive disorder Problem 12/27/2017 [facility] Medications Medication Details Route [...] as directed for 7 days. Active [facility] Phenazopyridine hydrochloride 200 MG Oral Tablet phenazopyridine 200 mg tablet Take 1 tablet 3 times a day by oral route as needed for 2 days. Active [facility] Metformin hydrochloride 500 MG [...] Ultra2 kit OneTouch Ultra2 kit Active [facility] Allergies, Adverse Reactions, Alerts No Known Medication Allergies Immunizations Immunization Date Given Site Status Last [...] panel - Urine GLUCOSE Negative 06/12/2017 [facility] Pathology Reports No Data Provided for This Section Diagnostic Reports No Data Provided for This Section Consultation Notes No Data Provided for This Section Discharge Summaries No Data Provided for This Section History and Physicals No Data Provided for This Section Vital Signs Vital Sign Value Date Comments [...] Date Status Source [place] - [facility] - [id number] SUMAN Colbert-C: [address] [place] [address], Ph. [phone] [id number] Joshua South 04/28/2017 [facility] [place] - [facility] - [id number] SUMAN Mari-C: [address] [place] [address], Ph. [id number] Marietta Huang 06/12/2017 [facility] [place] - [facility] - [id number] HENRY DiazC: [address] [place] [address], Ph. [phone] Kendall Carcamo 12/27/2017 [facility] Procedures No Data Provided for This Section Assessment and Plan No Data Provided for This Section Plan of Care No Data Provided for This Section Social History Social History Date Source Smoking Status Never Smoker 07/08/2010 [facility] Family History No Data Provided for This Section Advance Directives No Data Provided for This Section Functional Status No Data Provided for This Section
[2018-12-02 12:55] LABS: INR 1.09; PROTHROMBIN TIME 14.6 seconds (11.9-14.5)
[2018-12-02 12:56] LABS: PARTIAL THROMBOPLASTIN TIME 29.7 seconds (23.8-35.5)
[2018-12-02 14:55] VITALS: BP 138/84
--- NOTE | 2018-12-02 18:38 | Operative Report ---
DATE OF PROCEDURE: 12/02/2018 SURGEON: Tunde Jacobs MD PROCEDURES: EGD with biopsies and banding of esophageal varices. INDICATIONS FOR PROCEDURE: History of esophageal varices, the patient is in for additional banding. MEDICATIONS: The patient was done under MAC, please see anesthesiologist's note. PROCEDURE IN DETAIL: With the patient in left lateral decubitus position, a flexible fiberoptic Olympus gastroscope was introduced into the esophagus under direct visualization without any difficulty. Grade 3 to 4 esophageal varices were noted in the mid and distal esophagus. There were no active bleeding or stigmata of recent hemorrhage. The scope was then advanced with ease into the stomach and mucosa overlying the antrum and the body revealed changes compatible with portal hypertensive gastropathy. Biopsies were obtained from the antrum and sent to stain for H. pylori. The pylorus was of normal contour and shape, it was intubated with ease and the scope was advanced all the way to the second portion of the duodenum. The scope was then withdrawn slowly, mucosa overlying the proximal, second portion and duodenal bulb appeared to be within normal limits. The scope was then withdrawn back into the stomach and retroflexed and a lap band appeared to have eroded into the stomach, which has been noted previously. The scope was then straightened out and it was subsequently withdrawn. The patient was then fitted for banding and reintroduced into the esophagus. Seven bands were applied to three columns of varices. The patient tolerated the procedure well. IMPRESSION: 1. Grade 3 to 4 esophageal varices. No active bleeding or stigmata of recent hemorrhage. Seven bands applied to three columns of varices. 2. Eroded lap band. 3. Portal hypertensive gastropathy. Biopsies obtained and sent to stain for Helicobacter pylori. PLAN: Follow up histology. Continue Inderal 10 mg one p.o. b.i.d. and Protonix 40 mg one p.o. q.a.m. before meals. Tunde Jacobs MD [facility] [place] /[id number] cc: Romel Arias DO
== END | disposition home or self-care (01) ==
LOC: OR 12:05
PROVIDERS: ATTEND Internal Medicine Gastroenterology
DX: K74.60 Unspecified cirrhosis of liver (principal); I85.10 Secondary esophageal varices without bleeding; R18.8 Other ascites; K76.6 Portal hypertension; K31.89 Other diseases of stomach and duodenum; Z98.84 Bariatric surgery status; I10 Essential (primary) hypertension; E78.5 Hyperlipidemia, unspecified; E11.9 Type 2 diabetes mellitus without complications; Z01.810 Encounter for preprocedural cardiovascular examination; Z01.812 Encounter for preprocedural laboratory examination; Z79.84 Long term (current) use of oral hypoglycemic drugs; Z79.02 Long term (current) use of antithrombotics/antiplatelets
CPT/HCPCS: 36415 ×2; 43239; 43244; 82948; 85610 ×2; 85730 ×2; 93005; J2250; J2405; J2704; J3010; 43255

== ENCOUNTER → 2019-03-16 | Day surgery (SDC) | payer BC, MEDICARE ==
[2019-03-10 11:42] LABS: BASOPHILS # (AUTO) 0.1 (0.0-0.1); BASOPHILS % 1.4 % (0.0-1.0); EOSINOPHILS # (AUTO) 0.5 (0.0-0.4); EOSINOPHILS % 11.3 % (0.0-6.0); HEMOGLOBIN 8.7 g/dL (12.0-16.0); LYMPHOCYTES # (AUTO) 0.6 (1.0-3.2); LYMPHOCYTES % 13.9 % (18.0-39.1); MEAN CORPUSCULAR HEMOGLOBIN 24.3 pg (28-32); MONOCYTES # (AUTO) 0.6 (0.2-0.8); MONOCYTES % 13.9 % (4.4-11.3); NEUTROPHILS # (AUTO) 2.5 (2.1-6.9); NEUTROPHILS % 59.3 % (38.7-80.0); PLATELET COUNT 156 x10e3/uL (140-360); RED BLOOD COUNT 3.58 x10e6/uL (3.6-5.1); RED CELL DISTRIBUTION WIDTH 16.4 % (11.7-14.4)
[2019-03-10 11:52] LABS: INR 1.06; PROTHROMBIN TIME 14.3 seconds (11.9-14.5)
[2019-03-10 11:53] LABS: PARTIAL THROMBOPLASTIN TIME 28.6 seconds (23.8-35.5)
[2019-03-10 12:03] LABS: ALANINE AMINOTRANSFERASE 16 IU/L (0-55); ALBUMIN 3.3 g/dL (3.5-5.0); ALBUMIN/GLOBULIN RATIO 0.8 (0.8-2.0); ALKALINE PHOSPHATASE 70 IU/L (40-150); ANION GAP 11.1 mmol/L (8-16); BLOOD UREA NITROGEN 17 mg/dL (7-26); BUN/CREATININE RATIO 22 (6-25); CALCIUM 9.8 mg/dL (8.4-10.2); CARBON DIOXIDE 23 mmol/L (22-29); CHLORIDE 107 mmol/L (98-107); CREATININE, SERUM 0.79 mg/dL (0.57-1.11); EST GLOMERULAR FILTRATION RATE > 60 ML/MIN (60-); GLUCOSE 106 mg/dL (74-118); POTASSIUM 4.1 mmol/L (3.5-5.1); SODIUM 137 mmol/L (136-145)
[2019-03-16 10:48] VITALS: BP 123/69
--- NOTE | 2019-03-16 17:18 | Operative Report ---
DATE OF PROCEDURE: 03/16/2019 SURGEON: Tunde Jacobs MD PROCEDURE: EGD with banding. INDICATIONS FOR EGD: History of esophageal varices, status post banding, the patient is in for additional banding. MEDICATIONS: The patient was done under MAC, please see anesthesiologist's note. PROCEDURE IN DETAIL: With the patient in the left lateral decubitus position, a flexible fiberoptic Olympus gastroscope was introduced into the esophagus under direct visualization without any difficulty. Grade 2 to 3 esophageal varices were noted in the distal esophagus. There was no active bleeding or stigmata of recent hemorrhage. The scope was then advanced with ease into the stomach traversing a small hiatal hernia. Mucosa overlying the antrum and the body revealed changes compatible with portal hypertensive gastropathy, which was more prominent in the body as well as the fundus. The pylorus was of normal contour and shape. It was intubated with ease and the scope was advanced all the way to the second portion of the duodenum. The scope was then withdrawn slowly. Mucosa overlying the proximal second portion and duodenal bulb appeared to be within normal limits. The scope was then withdrawn back into the stomach and retroflexed, and also changes compatible with portal hypertensive gastropathy was noted in the fundus. There was also cardiac varices noted. The scope was then straightened out and it was subsequently withdrawn. The scope was then fitted for banding and reintroduced into the esophagus. Six bands were applied to 3 columns of varices. The scope was subsequently withdrawn and the patient tolerated the procedure well. IMPRESSION: 1. Grade 2 to 3 esophageal varices. No active bleeding or stigmata of recent hemorrhage. Six bands applied to 3 columns. 2. Small hiatal hernia. 3. Cardiac varices. 4. Portal hypertensive gastropathy. PLAN: Follow H and H. Increase Inderal to 10 mg 1 p.o. b.i.d. MD [facility]ALE[facility]avala/[facility] /[id number] cc: Romel Arias DO
== END | disposition home or self-care (01) ==
LOC: OR 07:41
PROVIDERS: ATTEND Internal Medicine Gastroenterology
DX: I85.00 Esophageal varices without bleeding (principal); K76.6 Portal hypertension; K31.89 Other diseases of stomach and duodenum; K44.9 Diaphragmatic hernia without obstruction or gangrene; K74.60 Unspecified cirrhosis of liver; E11.9 Type 2 diabetes mellitus without complications; I10 Essential (primary) hypertension; E78.2 Mixed hyperlipidemia; I82.531 Chronic embolism and thrombosis of right popliteal vein; F41.9 Anxiety disorder, unspecified; D50.0 Iron deficiency anemia secondary to blood loss (chronic); Z87.898 Personal history of other specified conditions; Z79.84 Long term (current) use of oral hypoglycemic drugs; Z01.810 Encounter for preprocedural cardiovascular examination; Z01.812 Encounter for preprocedural laboratory examination
CPT/HCPCS: 36415 ×2; 43244; 80053; 82948; 85025; 85610; 85730; 93005; J2250; J2405; J2704; J3010; 43235